=== PATIENT | female | born 1980 | race Caucasian/White ===

== ENCOUNTER 2017-12-15 10:34 | Outpatient (CLI) | payer OTHER | END 2017-12-15 10:44 | disposition home or self-care (01) | LOC: RX STUDY 10:34 | DX: Z01.419 Encounter for gynecological examination (general) (routine) without abnormal findings (principal); N91.2 Amenorrhea, unspecified; R10.2 Pelvic and perineal pain; N97.9 Female infertility, unspecified; E03.9 Hypothyroidism, unspecified; E16.2 Hypoglycemia, unspecified; E55.9 Vitamin D deficiency, unspecified; E78.5 Hyperlipidemia, unspecified; N39.0 Urinary tract infection, site not specified; N76.0 Acute vaginitis; Z12.4 Encounter for screening for malignant neoplasm of cervix; E22.9 Hyperfunction of pituitary gland, unspecified; D25.9 Leiomyoma of uterus, unspecified ==

== ENCOUNTER 2024-09-07 09:15 | Inpatient (IN) | payer OTHER ==
[~2024-09-07] VITALS: Ht 162.6 cm; Wt 83.5 kg
[2024-09-07 11:39] LABS: HEMATOCRIT 41.8 % (36.0-45.00); HEMOGLOBIN 14.1 g/dL (12.0-15.00); MEAN CELL VOLUME 94.5 fL (80.00-100.00); MEAN CORPUSCULAR HEMOGLOBIN 31.8 pg (27.00-32.0); MEAN CORPUSCULAR HGB CONC 33.7 g/dl (32.0-36.0); PLATELET COUNT 262 K/uL (150-450); RED BLOOD COUNT 4.43 M/uL (4.00-6.00); RED CELL DISTRIBUTION WIDTH 13.8 % (11.5-14.5)
[2024-09-07 11:56] LABS: INR 1.06; PARTIAL THROMBOPLASTIN TIME 32.8 SECONDS (22.0-34.0); PROTHROMBIN TIME 11.5 SECONDS (9.0-11.5)
[2024-09-07] MEDS ORDERED: CYMBALTA60 MG PO (12:06)
[2024-09-07] MEDS ORDERED: ADDERALL 30 MG30 MG PO (12:07)
[2024-09-07] MEDS ORDERED: SULFASALAZINE500 M1 PO (12:07)
[2024-09-07] MEDS ORDERED: LYRICA150 MG PO (12:08)
[2024-09-07] MEDS ORDERED: CLINORIL PO (12:09)
[2024-09-07] MEDS ORDERED: FERRETTS325 MG PO (12:10)
[2024-09-07] MEDS ORDERED: PROVIGIL200 MG PO (12:10)
[2024-09-07] MEDS ORDERED: ENALAPRIL MALEAT5 MG PO (12:10)
[2024-09-07] MEDS ORDERED: ZEPBOUND7.5 MG/0.5 (12:10)
[2024-09-07 12:11] VITALS: BP 117/76
[2024-09-07 12:15] VITALS: BP 115/76
[2024-09-07 12:15] LABS: RH POSITIVE
[2024-09-07 12:28] LABS: ALBUMIN 4.6 gm/dL (3.4-5.0); ALKALINE PHOSPHATASE 52 U/L (50-136); ALT/SGPT 16 U/L (12-78); ANION GAP 7 (10.0-20.0); AST/SGOT 12 U/L (15-37); BILIRUBIN TOTAL 0.49 mg/dL (0.3-1.2); BLOOD UREA NITROGEN 5 mg/dL (7-18); BUN CREA RATIO 7 (7.0-25.0); CALCIUM 9.3 mg/dL (8.5-10.1); CARBON DIOXIDE 29 mEq/L (21-32); CHLORIDE 106 mmol/L (98-107); CREATININE SERUM 0.76 mg/dL (0.55-1.02); GFR 83.46; GLOBULINA 3.1 G/DL (2.4-3.5); GLUCOSE FASTING 81 mg/dL (65-100); OSMOLALITY SERUM 272 MOSM/KG (275-295); POTASSIUM 4.06 mEq/L (3.5-5.1); SODIUM 138 mmol/L (136-145); TOTAL PROTEIN 7.7 gm/dL (6.4-8.2)
[2024-09-07 12:33] LABS: HCG QUANTITATIVE < 1 mUI/mL (1-3)
[2024-09-13] MEDS ORDERED: CEFAZOLIN SODIUM 1,000 MG VIAL IV ONE (10:45)
[2024-09-13] MEDS ORDERED: ONDANSETRON HCL 2 MG/ML VIAL IV PRN (13:15)
[2024-09-13] MEDS ORDERED: RINGERS SOLUTION,LACTATED 1,000 ML IV SCH (13:15)
[2024-09-13] MEDS ORDERED: IBUprofen 600 MG TABLET PO SCH (13:16)
[2024-09-13] MEDS ORDERED: MORPHINE SULFATE 4 MG/ML VIAL IV ONE ×2 (14:20→15:15)
[2024-09-13] MEDS ORDERED: MEPERIDINE HCL 25 MG/ML AMPUL IV ONE (15:45)
[2024-09-13] MEDS ORDERED: ACETAMINOPHEN 500 MG GEL..CAP PO SCH (18:00)
[2024-09-13] MEDS ORDERED: GABAPENTIN 300 MG CAPSULE PO SCH (18:00)
[2024-09-13 18:43] VITALS: BP 117/76
[2024-09-14 01:03] VITALS: BP 115/67
[2024-09-14 08:00] VITALS: BP 123/79
[2024-09-14 08:37] LABS: HEMATOCRIT 34.8 % (36.0-45.00); HEMOGLOBIN 11.8 g/dL (12.0-15.00); MEAN CELL VOLUME 94.8 fL (80.00-100.00); MEAN CORPUSCULAR HEMOGLOBIN 32.2 pg (27.00-32.0); PLATELET COUNT 186 K/uL (150-450); RED BLOOD COUNT 3.68 M/uL (4.00-6.00); RED CELL DISTRIBUTION WIDTH 13.9 % (11.5-14.5)
== END 2024-09-14 10:07 | disposition home or self-care (01) | DRG 743 ==
LOC: SURH 09-13 07:00 → OB/GYN 09-13 07:28 → O/R 09-13 07:28 → SURH 09-13 09:15 → OB/GYN 09-13 14:38
PROVIDERS: ADMIT Student in an Organized Health Care Education/Training Program; ATTEND Student in an Organized Health Care Education/Training Program
PROC: 0UT74ZZ Resection of Bilateral Fallopian Tubes, Percutaneous Endoscopic Approach (ICD-10-PCS; 2024-09-13)
PROC: 0UDB8ZZ Extraction of Endometrium, Via Natural or Artificial Opening Endoscopic (ICD-10-PCS; 2024-09-13)
PROC: 0WBH4ZZ Excision of Retroperitoneum, Percutaneous Endoscopic Approach (ICD-10-PCS; 2024-09-13)
PROC: 8E0W4CZ Robotic Assisted Procedure of Trunk Region, Percutaneous Endoscopic Approach (ICD-10-PCS; 2024-09-13)
PROC: 0TJB8ZZ Inspection of Bladder, Via Natural or Artificial Opening Endoscopic (ICD-10-PCS; 2024-09-13)
PROC: 0UT94ZZ Resection of Uterus, Percutaneous Endoscopic Approach (ICD-10-PCS; principal; 2024-09-13 07:00)
DX: D25.9 Leiomyoma of uterus, unspecified (principal); N94.6 Dysmenorrhea, unspecified; D50.0 Iron deficiency anemia secondary to blood loss (chronic); N72 Inflammatory disease of cervix uteri; N94.10 Unspecified dyspareunia; N80.351 Endometriosis of the right pelvic sidewall, unspecified depth; G47.33 Obstructive sleep apnea (adult) (pediatric)
CPT/HCPCS: 58573; 52000; 58662; 58661; S2900